=== PATIENT | female | born 1950 | race Caucasian/White ===

== ENCOUNTER 2016-08-03 18:28 | Outpatient (CLI) | payer MEDICARE | END 2016-08-03 18:29 | disposition critical access hospital (66) | DX: R06.02 Shortness of breath (principal) | CPT/HCPCS: A0425; A0427 ==

== ENCOUNTER 2016-08-03 18:54 | Inpatient (IN) | payer MEDICARE ==
[2016-08-03] MEDS ORDERED: MORPHINE 2 MG/ML SYRINGE ONE (18:58)
[2016-08-03] MEDS ORDERED: MORPHINE 2 MG/ML SYRINGE IVP STA (19:02)
[2016-08-03] MEDS ORDERED: ROCURONIUM 50 MG/5 ML VIAL IVP ONE (19:03)
[2016-08-03] MEDS ORDERED: ETOMIDATE 40 MG/20 ML VIAL IVP ONE (19:04)
[2016-08-03] MEDS ORDERED: SODIUM CHLORIDE 0.9% 1,000 ML IV ONE (19:09)
[2016-08-03] MEDS ORDERED: ALBUTEROL NEB 2.5 MG/3 ML INH STA (19:32)
[2016-08-03] MEDS ORDERED: ALBUTEROL NEB 2.5 MG/3 ML INH ONE (19:36)
[2016-08-03] MEDS ORDERED: LORazepam 2 MG/ML SYRINGE IVP PRN (20:24)
[2016-08-03] MEDS ORDERED: diazePAM INJ 5 MG/ML SYRINGE IVP PRN (20:24)
[2016-08-03] MEDS ORDERED: ONDANSETRON 4 MG/2 ML VIAL IVP PRN (20:24)
[2016-08-03] MEDS ORDERED: ALBUTEROL NEB 2.5 MG/3 ML INH PRN (20:32)
[2016-08-03] MEDS ORDERED: methylPREDNISolone SUCCINATE 80 MG in SODIUM CHLORIDE 0.9% 250 ML IV SCH (21:00)
[2016-08-03] MEDS: SODIUM CHLORIDE 0.9% 1,000 ML IV SCH (21:33)
[2016-08-03] MEDS: methylPREDNISolone SUCCINATE 40 MG/ML VIAL IVP SCH (21:55)
[2016-08-03] MEDS: SODIUM CHLORIDE FLUSH 0.9% 10 ML SYRINGE IVP SCH (21:55)
[2016-08-03] MEDS: IPRATROPIUM/ALBUTEROL 3 ML NEB INH SCH (22:00)
[2016-08-03] MEDS: MORPHINE 2 MG/ML SYRINGE IVP PRN (22:03)
[2016-08-04] MEDS: IPRATROPIUM/ALBUTEROL 3 ML NEB INH SCH ×7 (01:30→21:00)
[2016-08-04] MEDS: methylPREDNISolone SUCCINATE 40 MG/ML VIAL IVP SCH ×3 (05:24→21:43)
[2016-08-04] MEDS: SODIUM CHLORIDE FLUSH 0.9% 10 ML SYRINGE IVP SCH ×3 (05:25→21:19)
[2016-08-04] MEDS ORDERED: MAGNESIUM SULFATE 2 GM in SODIUM CHLORIDE 0.9% 50 ML IV ONE (06:32)
[2016-08-04] MEDS ORDERED: MAGNESIUM SULFATE 2 GRAM 50 ML IV ONE (06:48)
[2016-08-04] MEDS: MORPHINE 2 MG/ML SYRINGE IVP PRN ×4 (07:00→23:50)
[2016-08-04] MEDS ORDERED: MAGNESIUM SULFATE 2 GRAM 50 ML IV SCH (07:00)
[2016-08-04] MEDS: SODIUM CHLORIDE 0.9% 1,000 ML IV SCH ×2 (08:21→21:50)
[2016-08-04] MEDS: POLYETHYLENE GLYCOL 3350 17 GM PACKET PO SCH (08:23)
[2016-08-04] MEDS: THIAMINE 100 MG TABLET PO SCH (08:23)
[2016-08-04] MEDS: PRENATAL VITAMIN TABLET PO SCH (08:23)
[2016-08-04] MEDS: ENOXAPARIN 40 MG/0.4 ML SYRINGE SUBQ SCH (08:24)
[2016-08-04] MEDS: INSULIN ASPART 300 UNIT/3 ML PEN SUBQ SCH (21:43)
[2016-08-05] MEDS: IPRATROPIUM/ALBUTEROL 3 ML NEB INH SCH ×6 (01:35→21:04)
[2016-08-05] MEDS: methylPREDNISolone SUCCINATE 40 MG/ML VIAL IVP SCH ×3 (05:24→21:43)
[2016-08-05] MEDS: SODIUM CHLORIDE FLUSH 0.9% 10 ML SYRINGE IVP SCH ×3 (05:25→21:43)
[2016-08-05] MEDS ORDERED: INSULIN ASPART 300 UNIT/3 ML PEN SUBQ SCH (08:00)
[2016-08-05] MEDS: ENOXAPARIN 40 MG/0.4 ML SYRINGE SUBQ SCH (08:01)
[2016-08-05] MEDS: PRENATAL VITAMIN TABLET PO SCH (08:01)
[2016-08-05] MEDS: THIAMINE 100 MG TABLET PO SCH (08:01)
[2016-08-05] MEDS: INSULIN ASPART 300 UNIT/3 ML PEN SUBQ SCH ×4 (08:02→21:42)
[2016-08-05] MEDS: POLYETHYLENE GLYCOL 3350 17 GM PACKET PO SCH (08:03)
[2016-08-05] MEDS: SODIUM CHLORIDE 0.9% 1,000 ML IV SCH (10:17)
[2016-08-05] MEDS: MORPHINE 2 MG/ML SYRINGE IVP PRN ×3 (11:10→22:01)
[2016-08-05] MEDS: FORMOTEROL FUMARATE NEB 20 MCG/2 ML INH SCH ×2 (13:21→21:04)
[2016-08-05] MEDS: SODIUM CHLORIDE FLUSH 0.9% 10 ML SYRINGE IVP PRN ×2 (18:37→22:02)
[2016-08-06] MEDS: IPRATROPIUM/ALBUTEROL 3 ML NEB INH SCH ×3 (01:02→09:18)
[2016-08-06] MEDS: ACETAMINOPHEN 325 MG TABLET PO PRN ×2 (04:39→08:44)
[2016-08-06] MEDS: FORMOTEROL FUMARATE NEB 20 MCG/2 ML INH SCH (05:10)
[2016-08-06] MEDS: methylPREDNISolone SUCCINATE 40 MG/ML VIAL IVP SCH (05:46)
[2016-08-06] MEDS: SODIUM CHLORIDE FLUSH 0.9% 10 ML SYRINGE IVP SCH (05:46)
[2016-08-06] MEDS: THIAMINE 100 MG TABLET PO SCH (08:40)
[2016-08-06] MEDS: PRENATAL VITAMIN TABLET PO SCH (08:40)
[2016-08-06] MEDS: ENOXAPARIN 40 MG/0.4 ML SYRINGE SUBQ SCH (08:40)
[2016-08-06] MEDS: POLYETHYLENE GLYCOL 3350 17 GM PACKET PO SCH (11:18)
[2016-08-06] MEDS: INSULIN ASPART 300 UNIT/3 ML PEN SUBQ SCH (11:19)
== END 2016-08-06 11:05 | disposition home health service (06) | DRG 192 ==
DX: J44.1 Chronic obstructive pulmonary disease with (acute) exacerbation (principal); R09.02 Hypoxemia; F17.200 Nicotine dependence, unspecified, uncomplicated; F10.20 Alcohol dependence, uncomplicated; F17.210 Nicotine dependence, cigarettes, uncomplicated; R21 Rash and other nonspecific skin eruption

== ENCOUNTER 2018-05-18 14:23 | Outpatient (CLI) | payer MEDICARE | END 2018-05-18 14:24 | disposition critical access hospital (66) | LOC: EMS 14:23 | PROVIDERS: ATTEND Surgery | DX: R06.02 Shortness of breath (principal) | CPT/HCPCS: A0425; A0427 ==

== ENCOUNTER 2018-05-18 14:58 | Emergency (ER) | payer MEDICARE ==
[2018-05-18] MEDS ORDERED: IPRATROPIUM 0.2 MG/ML NEB INH STA (15:10)
[2018-05-18] MEDS ORDERED: ALBUTEROL NEB 2.5 MG/3 ML INH STA ×2 (15:10→19:49)
[2018-05-18] MEDS ORDERED: MAGNESIUM SULFATE 2 GRAM 2 GM/50 ML BAG IV ONE (15:11)
[2018-05-18 15:39] LABS: BASOPHILS # (AUTO) 0.1 10^3/uL (0.0-0.1); BASOPHILS % (AUTO) 0.8 %; EOSINOPHILS # (AUTO) 0.5 10^3/uL (0.0-0.7); EOSINOPHILS % (AUTO) 5.3 %; HGB - HEMOGLOBIN 14.4 g/dL (12.0-16.0); LYMPHOCYTES # (AUTO) 2.3 10^3/uL (1.5-3.5); LYMPHOCYTES % (AUTO) 25.6 %; MEAN CORPUSCULAR HEMOGLOBIN 34.5 pg (27.0-31.0); MEAN CORPUSCULAR HGB CONC 33.7 g/dL (32.0-36.0); MEAN CORPUSCULAR VOLUME 102.4 fL (81.0-99.0); MEAN PLATELET VOLUME 8.2 fL (7.9-10.8); MONOCYTES # (AUTO) 0.7 10^3/uL (0.0-1.0); MONOCYTES % (AUTO) 7.9 %; NEUTROPHILS # (AUTO) 5.5 10^3/uL (1.5-6.6); NEUTROPHILS % (AUTO) 60.4 %; PLT - PLATELET COUNT 287 10^3/uL (130-450); RED BLOOD COUNT 4.19 10^6/uL (4.20-5.40); RED CELL DISTRIBUTION WIDTH 13.7 % (12.0-15.0); WHITE BLOOD COUNT 9.2 x10^3/uL (4.8-10.8)
[2018-05-18] MEDS ORDERED: ALBUTEROL SULF 0.5% 20ML SOLUTION INH STA (15:40)
[2018-05-18 15:43] LABS: ALBUMIN 4.4 g/dL (3.2-5.5); ALBUMIN/GLOBULIN RATIO 1.2 (1.0-2.2); BILIRUBIN,TOTAL 0.9 mg/dL (0.2-1.0); CALCIUM 9.1 mg/dL (8.5-10.3); CREATININE 0.7 mg/dL (0.4-1.0)
[2018-05-18] MEDS ORDERED: ENOXAPARIN 100 MG/ML SYRINGE SUBQ STA (16:02)
[2018-05-18] MEDS ORDERED: ASPIRIN CHEW 81 MG TABLET PO STA (16:02)
--- NOTE | 2018-05-18 16:03 | ED Physician Documentation ---
PD HPI DYSPNEA - Stated complaint Stated Complaint: SOA - Chief complaint Chief Complaint: Resp - History obtained from History obtained from: Patient - Additional information Additional information: 67-year-old female presents to the emergency department with shortness of breath and wheezing which is typical for her COPD. The patient has been out of her medications recently and today had increased wheezing and shortness of breath. The patient had no improvement with her home medications. The patient denies fevers, chills or recent illness. The patient had improvement in route with EMS while she received a DuoNeb and Solu-Medrol in route with EMS.Symptoms currently are moderate but were severe in the beginning. Review of Systems Constitutional: reports: Fatigue. 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 : None HEENT: None Psych: None Musculoskeletal: Chronic back pain Derm: None - Past Surgical History Past Surgical History: Yes Ortho: Spine surgery - Present Medications Home Medications: Ambulatory Orders Medication Instructions Recorded Confirmed Albuterol Sulfate [Proair 2 puffs INH Q4H PRN 08/04/16 08/04/16 Respiclick] Fluticasone/Salmeterol [Advair 1 puffs INH BID 08/04/16 08/04/16 250-50 Diskus] Ipratropium/Albuterol [Duoneb] 3 ml INH Q4HR #120 neb 08/06/16 Nebulizer [Aeroneb Go Nebulizer] 1 each MC QID #1 each 08/06/16 Oxygen 2 l ALEK DAILY #1 08/06/16 Prednisone 10 mg PO UD #1 tab.ds.pk 08/06/16 Thiamine [Vitamin B-1] 100 mg PO DAILY #1 bottle 08/06/16 - Allergies Allergies/Adverse Reactions: Allergies Allergy/AdvReac Type Severity Reaction Status Date / Time No Known Drug Allergies Allergy Verified 05/18/18 15:05 - Social History Does the pt smoke?: Yes Smoking Status: Current every day smoker Does the pt drink ETOH?: Yes ETOH Use: Wine, Beer, Liquor Does the pt have substance abuse?: No - Immunizations Immunizations are current?: No Immunizations: TDAP >10years/unknown - POLST Patient has POLST: No PD ED PE NORMAL - General General: Alert and oriented X 3 - HEENT HEENT: Atraumatic, PERRL, EOMI, Ears normal - Neck Neck: Supple, no meningeal sign - Cardiac Cardiac: RRR, Strong equal pulses - Respiratory Respiratory: Other (Increased respiratory rate with poor aeration and generalized wheezing) - Abdomen Abdomen: Soft, Non tender - Derm Derm: Normal color - Extremities Extremities: No deformity, Normal ROM s pain, No edema - Neuro Neuro: Alert and oriented X 3, 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 unit 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 2-12 intact, Normal speech - Psych Psych: Normal mood Results - Vitals Vitals: Vital Signs - 24 hr 05/18/18 05/18/18 05/18/18 15:00 15:26 16:00 Temperature 35.6 C L Heart Rate 113 H 118 H 110 H Respiratory 20 21 12 Rate Blood Pressure 124/97 H 111/82 H O2 Saturation 94 94 05/18/18 05/18/18 16:11 19:46 Temperature Heart Rate 112 H 106 H Respiratory 18 14 Rate Blood Pressure 105/77 103/79 O2 Saturation 100 94 Oxygen O2 Source Room air Oxygen Flow Rate 2 - EKG (time done) 15:06 Rate: Rate (enter#) Rhythm: Sinus tachycardia Intervals: Normal IN, QRS normal Ischemia: Non specific changes Compare to prior EKG: Unchanged from prior EKG - Labs Labs: Laboratory Tests 05/18/18 05/18/18 05/18/18 15:25 15:25 15:25 WBC 9.2 RBC 4.19 L Hgb 14.4 Hct 42.9 MCV 102.4 H MCH 34.5 H MCHC 33.7 RDW 13.7 Plt Count 287 MPV 8.2 Neut # (Auto) 5.5 Lymph # (Auto) 2.3 [place] # (Auto) 0.7 Eos # (Auto) 0.5 Baso # (Auto) 0.1 Absolute Nucleated RBC 0.00 Nucleated RBC % 0.0 Sodium 137 Potassium 4.0 Chloride 101 Carbon Dioxide 24 Anion Gap 12.0 BUN 11 Creatinine 0.7 Estimated GFR (MDRD) 84 L Glucose 130 H Calcium 9.1 Total Bilirubin 0.9 AST 84 H ALT 41 Alkaline Phosphatase 81 Troponin I 1.63 H* Total Protein 8.0 Albumin 4.4 Globulin 3.6 Albumin/Globulin Ratio 1.2 Lipase 21 L - Rads (name of study) CTA Radiology: Final report received, See rad report (1. Negative for pulmonary embolism. 2. Multiple bilateral pulmonary nodules, pattern highly concerning for metastatic disease. Some of the nodules are cavitary which raises the alternate possibility of infection/septic emboli. 3. There is right hilar lymphadenopathy. 4. There is an incompletely characterized area of decreased attenuation in the anterior left hepatic lobe. 5. There is pulmonary emphysema.) PD MEDICAL DECISION MAKING - ED course ED course: The patient's history, presentation are consistent with an acute COPD exacerbation. But, the patient's troponin is significantly elevated but the patient's EKG does not show any acute ischemic changes when compared to a recent EKG. On reevaluation the patient does report intermittent episodes of dyspnea on exertion and chest tightness. But today her symptoms are more consistent with her typical COPD. The patient will require admission to the hospital for further management of her COPD, CT findings and elevated troponin. The patient will require transfer to a higher level of care. The case was managed through the [facility] physician line and they have arranged transfer to [facility]. Presently the patient appears stable for transfer. The findings and plan were discussed with the patient who understands and agrees to the plan. Given the findings on CT scan and the possibility of a infectious emboli the patient will be placed on a course of antibiotics. This will require further workup during her hospitalization Departure - Departure Disposition: 02 Transfer Acute Care Hosp Clinical Impression: NSTEMI (non-ST elevated myocardial infarction), COPD with exacerbation, Pulmonary nodules Condition: Good
[2018-05-18] MEDS ORDERED: IOVERSOL 320 100 ML VIAL IVP ONE ×2 (16:13→17:14)
--- NOTE | 2018-05-18 16:17 | XRAY Report ---
Reason: soa Procedure Date: 05/18/2018 Accession Number: [id number] / [id number] Procedure: XR - Chest 2 View X-Ray CPT Code: 13143 FULL RESULT: EXAM: CHEST RADIOGRAPHY EXAM DATE: 05/18/2018 03:57 PM. CLINICAL HISTORY: Soa. COMPARISON: CHEST 1 VIEW 08/03/2016 7:16 PM. TECHNIQUE: 2 views. FINDINGS: Lungs/Pleura: Hyperexpanded, typical for COPD. Multiple faint nodular densities in both lungs. No acute infiltrate, consolidation, effusion, or pneumothorax. Mediastinum: Heart and mediastinal contours are unremarkable. Upper lobe vessels not distended. Other: None. IMPRESSION: Multiple pulmonary nodules. CT scan is recommended. RADIA
[2018-05-18] MEDS ORDERED: ENOXAPARIN 60 MG/0.6 ML SYRINGE SUBQ STA (16:26)
--- NOTE | 2018-05-18 17:45 | CT Report ---
Reason: SOA Procedure Date: 05/18/2018 Accession Number: [id number] / [id number] Procedure: CT - Chest Angio (PE) CPT Code: FULL RESULT: EXAM: CT ANGIOGRAM CHEST EXAM DATE: 05/18/2018 05:10 PM. CLINICAL HISTORY: Short of breath. COMPARISON: CHEST 2 VIEW 05/18/2018 3:43 PM. TECHNIQUE: Routine helical imaging was performed through the chest in the pulmonary arterial phase. IV Contrast: OPTI 320 80mL. Reconstructions: Coronal 3-D MIP reconstructions.Sagittal and coronal. In accordance with CT protocol optimization, one or more of the following dose reduction techniques were utilized for this exam: automated exposure control, adjustment of mA and/or KV based on patient size, or use of iterative reconstructive technique. FINDINGS: Pulmonary Arteries: Diagnostic quality: Images are motion degraded but overall adequate through the segmental arteries. No evidence for acute or chronic pulmonary emboli. RV/LV is within normal limits. There is no interventricular septal bowing. There is reflux of contrast material in the IVC. Lungs/Pleura: There are multiple bilateral lung nodules, some of which are cavitary. For example: 1. Cavitary in the right lower lobe medially series 5 image 67 measuring 1.2 x 1.6 cm. 2. Anterior left upper lobe series 5 image 68 measuring 0.9 x 1.6 cm. There is pulmonary emphysema. No pneumothorax or pleural effusion. Mediastinum: There is right hilar adenopathy on series 4 image 62 measuring 1.5 x 1.7 cm. Normal heart size. Thoracic Aorta: Unremarkable. Upper Abdomen: There is an area of decreased attenuation in the anterior aspect of segment 4 and series 4 image 150 measuring approximately 1.6 x 3.8 cm. Other: No acute or suspicious skeletal abnormalities. IMPRESSION: 1. Negative for pulmonary embolism. 2. Multiple bilateral pulmonary nodules, pattern highly concerning for metastatic disease. Some of the nodules are cavitary which raises the alternate possibility of infection/septic emboli. 3. There is right hilar lymphadenopathy. 4. There is an incompletely characterized area of decreased attenuation in the anterior left hepatic lobe. 5. There is pulmonary emphysema. RADIA
[2018-05-18] MEDS ORDERED: NAPROXEN 250 MG TABLET PO STA (19:49)
[2018-05-18] MEDS ORDERED: LORazepam 2 MG/ML VIAL IVP STA (19:59)
[2018-05-18] MEDS ORDERED: CEFEPIME 1 GM in SODIUM CHLORIDE 0.9% MINIBAG 100 ML IV STA (20:10)
[2018-05-18 21:59] VITALS: BP 102/78
== END 2018-05-18 23:10 | disposition short-term general hospital (02) ==
LOC: EDUNIT# → ED 14:58
DX: I21.4 Non-ST elevation (NSTEMI) myocardial infarction (principal); J44.1 Chronic obstructive pulmonary disease with (acute) exacerbation; R91.1 Solitary pulmonary nodule; R00.0 Tachycardia, unspecified; F17.200 Nicotine dependence, unspecified, uncomplicated
CPT/HCPCS: 36415; 71046; 71275; 80053; 83690; 84484; 85025; 87040; 93005; 94640; 94664; 96365; 96367; 96372; 96375; 99284; 99285; A9270; J1650; J2060; Q9967

== ENCOUNTER 2018-11-27 11:29 | Outpatient (CLI) | payer MEDICARE ==
[2018-11-27 12:05] LABS: CREATININE 0.8 mg/dL (0.4-1.0)
[2018-11-27] MEDS ORDERED: IOVERSOL 320 100 ML VIAL IVP ONE ×2 (13:11→17:06)
--- NOTE | 2018-11-29 10:02 | CT Report ---
Reason: CHRONIC OBSTRUCTIVE PULMONARY DISEASE,UNSPECIFIED Procedure Date: 11/27/2018 Accession Number: [id number] / [id number] Procedure: CT - CHEST W CPT Code: FULL RESULT: EXAM: CT CHEST EXAM DATE: 11/27/2018 01:37 PM. CLINICAL HISTORY: Chronic obstructive pulmonary disease, unspecified. Followup of previously found pulmonary nodules concerning for metastatic disease or septic emboli. COMPARISONS: CHEST ANGIO 05/18/2018 4:55 PM. TECHNIQUE: Routine helical CT imaging was performed through the chest. IV contrast: None. Reconstructions: Coronal and sagittal. In accordance with CT protocol optimization, one or more of the following dose reduction techniques were utilized for this exam: automated exposure control, adjustment of mA and/or KV based on patient size, or use of iterative reconstructive technique. FINDINGS: Lungs/Pleura: Previously seen bilateral pulmonary nodules essentially persist with the largest right lower lobe nodule measuring up to 1.2 cm and the largest left upper lobe nodule measuring up to 1.3 cm on today's examination. The nodules demonstrate irregular borders. Previously seen cavitary components of the nodules in the right lower lobe have resolved with solid nodules remaining in the same positions. There is no definite interval growth or progression of number of irregular nodules. Coronal view of the current study and prior study reveals that nodules generally follow a peribronchovascular upper lobe predominant distribution subjective impression of interval improvement of volume of these nodules. Pulmonary background is again noted to be moderately emphysematous, upper lobe predominant. There is no pleural effusion or pneumothorax. No convincing groundglass components. Mediastinum: Normal. No adenopathy or masses. The heart and great vessels are normal. Bones: Unremarkable. Visualized Abdomen: Unremarkable. Other: None. IMPRESSION: Bilateral upper lobe predominant peribronchovascular irregularly shaped nodules with interval improvement in previously seen cavitation and size. JONAS The call report notification system was initiated by Dr. Ravi Murphy at 10:01 AM on 11/29/2018. ADDENDUM: 11/29/18 10:09 The above call report findings were discussed with SAVANNAH Bonner on behalf ofRadha Flowers by Dr. Ravi Murphy at 10:09 AM on 11/29/2018.
== END 2018-11-27 11:30 | disposition home or self-care (01) ==
LOC: DI 11:29
PROVIDERS: ATTEND Student in an Organized Health Care Education/Training Program
DX: J44.9 Chronic obstructive pulmonary disease, unspecified (principal); Z13.89 Encounter for screening for other disorder
CPT/HCPCS: 36415; 71260; 82565; Q9967

== ENCOUNTER 2019-06-24 13:39 | Outpatient (CLI) | payer MEDICARE ==
[2019-06-24 17:56] LABS: BASOPHILS # (AUTO) 0.1 10^3/uL (0.0-0.1); EOSINOPHILS # (AUTO) 0.2 10^3/uL (0.0-0.7); EOSINOPHILS % (AUTO) 3.7 %; HGB - HEMOGLOBIN 13.4 g/dL (12.0-16.0); LYMPHOCYTES # (AUTO) 1.5 10^3/uL (1.5-3.5); LYMPHOCYTES % (AUTO) 31.6 %; MEAN CORPUSCULAR HEMOGLOBIN 32.2 pg (27.0-31.0); MEAN CORPUSCULAR HGB CONC 32.8 g/dL (32.0-36.0); MEAN CORPUSCULAR VOLUME 98.3 fL (81.0-99.0); MEAN PLATELET VOLUME 11.2 fL (7.9-10.8); MONOCYTES # (AUTO) 0.4 10^3/uL (0.0-1.0); MONOCYTES % (AUTO) 8.3 %; NEUTROPHILS # (AUTO) 2.7 10^3/uL (1.5-6.6); NEUTROPHILS % (AUTO) 55.2 %; PLT - PLATELET COUNT 226 10^3/uL (130-450); RED BLOOD COUNT 4.16 10^6/uL (4.20-5.40); RED CELL DISTRIBUTION WIDTH 14.1 % (12.0-15.0); WHITE BLOOD COUNT 4.8 x10^3/uL (4.8-10.8)
[2019-06-24 18:27] LABS: ALBUMIN 4.5 g/dL (3.2-5.5); ALBUMIN/GLOBULIN RATIO 1.4 (1.0-2.2); ALKALINE PHOSPHATASE 67 IU/L (42-121); ALT ALANINE AMINOTRANSFERASE 26 IU/L (10-60); AST ASPARTATE AMINOTRANSFERASE 43 IU/L (10-42); BILIRUBIN,TOTAL 0.8 mg/dL (0.2-1.0); BUN - BLOOD UREA NITROGEN 13 mg/dL (6-20); CALCIUM 9.2 mg/dL (8.5-10.3); CARBON DIOXIDE - CO2 26 mmol/L (21-32); CHLORIDE 101 mmol/L (101-111); CHOL/HDL RATIO 1.9 (<4.4); CHOLESTEROL 192 mg/dL; CREATININE 0.7 mg/dL (0.4-1.0); GFR - MDRD 83 (>89); GLUCOSE 100 mg/dL (70-100); HDL CHOLESTEROL 102 mg/dL; LDL CHOLESTEROL,CALCULATED 77 mg/dL; LDL/HDL RATIO 0.8 (<4.4); SODIUM 136 mmol/L (135-145); TOTAL PROTEIN 7.7 g/dL (6.7-8.2); VLDL CHOLESTEROL 13 mg/dL
== END 2019-06-24 13:40 | disposition home or self-care (01) ==
LOC: LAB.S 13:39
PROVIDERS: ATTEND Registered Nurse
DX: E78.5 Hyperlipidemia, unspecified (principal); R03.0 Elevated blood-pressure reading, without diagnosis of hypertension; J44.9 Chronic obstructive pulmonary disease, unspecified
CPT/HCPCS: 36415; 80053; 80061; 83721; 84443; 85025

== ENCOUNTER 2019-09-10 21:44 | Emergency (ER) | payer MEDICARE ==
--- NOTE | 2019-09-10 22:35 | ED Physician Documentation ---
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 it is left of midline and intermittently spreads to involve left anterior chin. denies h/o similar symptoms, GOMEZ, weakness, other numbness Review of Systems Constitutional: denies: Fever Eyes: denies: Loss of vision, Decreased vision Ears: reports: Tinnitus/ringing Nose: denies: Rhinorrhea / runny nose, Congestion, Sinus pressure / pain Neurologic: reports: Numbness. 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 : None HEENT: None Psych: None Musculoskeletal: Chronic back pain Derm: None - Past Surgical History Past Surgical History: Yes Ortho: Spine surgery - Present Medications Home Medications: Ambulatory Orders Medication Instructions Recorded Confirmed Albuterol Sulfate [Proair 2 puffs INH Q4H PRN 08/04/16 09/10/19 Respiclick] Ipratropium/Albuterol [Duoneb] 3 ml INH Q4HR #120 neb 08/06/16 09/10/19 Nebulizer [Aeroneb Go Nebulizer] 1 each QID #1 each 08/06/16 09/10/19 Aspirin 81 mg PO DAILY 09/10/19 09/10/19 Atorvastatin Calcium 80 mg PO DAILY 09/10/19 09/10/19 Losartan Potassium 25 mg PO DAILY 09/10/19 09/10/19 Metoprolol Succinate [Toprol Xl] 25 mg PO DAILY 09/10/19 09/10/19 Potassium Chloride [K-Dur] 20 mg PO PRN PRN 09/10/19 09/10/19 QUEtiapine [SEROquel] 25 mg PO DAILY PRN 09/10/19 09/10/19 - Allergies Allergies/Adverse Reactions: Allergies Allergy/AdvReac Type Severity Reaction Status Date / Time topiramate [From Topamax] Allergy Unknown Verified 05/13/20 07:14 varenicline [From Chantix] Allergy Unknown Verified 09/11/19 07:14 - Social History Does the pt smoke?: Yes Smoking Status: Current every day smoker Does the pt drink ETOH?: Yes Does the pt have substance abuse?: No - Immunizations Immunizations are current?: No Immunizations: TDAP >10years/unknown - POLST Patient has POLST: No PD ED PE NORMAL - Vitals Vital signs reviewed: Yes - General General: Alert and oriented X 3, No acute distress, Well developed/nourished - HEENT HEENT: PERRL, EOMI, Ears normal (only looked in left ear (side of symptoms), and exam of left external auditory canal and left TM is unremarkable), Moist mucous membranes - Derm Derm: Normal color, Warm and dry, No rash - Neuro Neuro: Alert and oriented X 3, 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, No motor deficit, No sensory deficit, Normal speech, Other (no facial asymetry, no facial weakness elicited with muscle testing (smiling, raising eyebrows, closing eyes)) Results - Vitals Vitals: Vital Signs - 24 hr 09/10/19 09/10/19 09/10/19 21:57 23:16 23:57 Temperature 36.2 C L 36.8 C Heart Rate 87 103 H Respiratory 17 17 20 Rate Blood Pressure 123/88 H 137/72 H O2 Saturation 96 98 09/11/19 00:00 Temperature Heart Rate Respiratory 17 Rate Blood Pressure O2 Saturation Oxygen O2 Source Room air - Rads (name of study) CT head Radiology: Prelim report reviewed, See rad report PD MEDICAL DECISION MAKING - ED course Complexity details: reviewed results, re-evaluated patient, considered differential, d/w patient Departure - Departure Disposition: 01 Home, Self Care Clinical Impression: Lt facial numbness Condition: Good Instructions: ED Paraesthesias Follow-Up: Natasha Cabrera ARNP [Primary Care Provider] - Discharge Date/Time: 09/11/19 00:12
--- NOTE | 2019-09-10 23:45 | CT Report ---
Reason: left facial numbness Procedure Date: 09/10/2019 Accession Number: [id number] / [id number] Procedure: CT - HEAD WO CPT Code: Final Report FULL RESULT: EXAM: CT HEAD WITHOUT CONTRAST. EXAM DATE: 09/10/2019 11:03 PM. CLINICAL HISTORY: Left facial numbness. COMPARISON: None. TECHNIQUE: Multiaxial CT images were obtained from the foramen magnum to the vertex. Reformats: Sagittal and coronal. IV contrast: None. In accordance with CT protocol optimization, one or more of the following dose reduction techniques were utilized for this exam: automated exposure control, adjustment of mA and/or KV based on patient size, or use of iterative reconstructive technique. FINDINGS: Parenchyma: No intraparenchymal hemorrhage. No evidence of mass, midline shift, or CT findings of acute infarction. [place]-white differentiation is distinct. Extraaxial Spaces: There is bilateral predominantly frontal lobe cortical atrophy. No subdural or epidural collections identified. Ventricles: Normal in size and position. Sinuses and Orbits: Imaged paranasal sinuses, orbits, and mastoids show no significant abnormality. Bones: No evidence of fracture or calvarial defect. Other: None. IMPRESSION: No acute intracranial abnormality. RADIA
[2019-09-10 23:57] VITALS: BP 137/72
== END 2019-09-11 00:12 | disposition home or self-care (01) ==
LOC: ED 21:44
DX: R20.0 Anesthesia of skin (principal); H93.12 Tinnitus, left ear; F17.200 Nicotine dependence, unspecified, uncomplicated; Z79.82 Long term (current) use of aspirin
CPT/HCPCS: 70450; 99284

== ENCOUNTER 2020-01-18 09:38 | Outpatient (CLI) | payer MEDICARE ==
--- NOTE | 2020-01-18 12:59 | CT Report ---
PROCEDURE: CHEST WO INDICATIONS: PULMONARY NODULES TECHNIQUE: Noncontrast 5 mm thick sections acquired from the pulmonary apices to the posterior costophrenic angl es. 7 mm thick coronal and sagittal MIP reformats were then acquired. For radiation dose reduction, the following was used: automated exposure control, adjustment of mA and/or kV according to patient size. COMPARISON: 11/27/2018, 05/18/2018 FINDINGS: Image quality: Excellent. Lungs and pleura: Numerous bilateral pulmonary nodules are seen. When compared to the 11/27/2018 exam ination, the nodules are not significantly changed in size. No new nodules are seen. Within the left lower lobe peripherally, there is a focus of ground glass opacity seen, as on series 4 image 2012, wh ich measures up to 1.6 cm. This is more prominent on the current study than on the prior. No pleural effusions or pneumothorax. Central and peripheral airways are patent and normal in calibe r. Mediastinum: Heart size is normal. No pericardial effusion. No mediastinal adenopathy by size crit eria. Thoracic aorta and central pulmonary arteries are normal in size. Esophagus is normal in sydnie martha. There is a small hiatal hernia. Bones and chest wall: No suspicious bony lesions. Age-appropriate degenerative changes are seen. No vertebral body compression fractures. No axillary or supraclavicular adenopathy by size criteria. The thyroid is normal in size. Abdomen: Visualized upper abdominal solid organs and bowel loops appear normal in the absence of con trast. IMPRESSION: Multiple bilateral stable pulmonary nodules are seen. These are felt most likely to be benign. There is a focus of groundglass opacity seen within the left lower lobe which has increased since the prior CT. Differential diagnosis includes chronic infectious or inflammatory change. Neoplasm is con sidered to be less likely. Please consider a noncontrast chest CT follow-up in 6-12 months for further evaluation. Incidental note is made of: Small hiatal hernia Reviewed by: Ralph Serrano MD on 01/18/2020 11:58 AM AKKRISTEN Approved by: Ralph Serrano MD on 01/18/2020 11:58 AM AKKRISTEN Station ID: [id number]
== END 2020-01-18 09:39 | disposition home or self-care (01) ==
LOC: DI 09:38
PROVIDERS: ATTEND Internal Medicine Pulmonary Disease
DX: R91.8 Other nonspecific abnormal finding of lung field (principal)
CPT/HCPCS: 71250

== ENCOUNTER 2020-09-18 09:10 | Outpatient (CLI) | payer MEDICARE ==
[2020-09-18 14:33] LABS: BASOPHILS # (AUTO) 0.1 10^3/uL (0.0-0.1); BASOPHILS % (AUTO) 0.8 %; EOSINOPHILS # (AUTO) 0.2 10^3/uL (0.0-0.7); EOSINOPHILS % (AUTO) 3.9 %; LYMPHOCYTES # (AUTO) 1.5 10^3/uL (1.5-3.5); LYMPHOCYTES % (AUTO) 24.5 %; MEAN CORPUSCULAR HEMOGLOBIN 32.7 pg (27.0-31.0); MEAN CORPUSCULAR HGB CONC 32.5 g/dL (32.0-36.0); MEAN CORPUSCULAR VOLUME 100.5 fL (81.0-99.0); MONOCYTES # (AUTO) 0.4 10^3/uL (0.0-1.0); MONOCYTES % (AUTO) 7.3 %; NEUTROPHILS # (AUTO) 3.7 10^3/uL (1.5-6.6); PLT - PLATELET COUNT 250 10^3/uL (130-450); RED BLOOD COUNT 3.98 10^6/uL (4.20-5.40); RED CELL DISTRIBUTION WIDTH 14.8 % (12.0-15.0); WHITE BLOOD COUNT 5.9 x10^3/uL (4.8-10.8)
[2020-09-18 15:48] LABS: ALBUMIN 4.4 g/dL (3.2-5.5); ALBUMIN/GLOBULIN RATIO 1.3 (1.0-2.2); ALKALINE PHOSPHATASE 84 IU/L (42-121); ALT ALANINE AMINOTRANSFERASE 41 IU/L (10-60); AST ASPARTATE AMINOTRANSFERASE 82 IU/L (10-42); BILIRUBIN,TOTAL 0.9 mg/dL (0.2-1.0); BUN - BLOOD UREA NITROGEN 6 mg/dL (6-20); CALCIUM 9.5 mg/dL (8.5-10.3); CARBON DIOXIDE - CO2 24 mmol/L (21-32); CHLORIDE 104 mmol/L (101-111); CHOL/HDL RATIO 1.6 (<4.4); CHOLESTEROL 187 mg/dL; CREATININE 0.5 mg/dL (0.4-1.0); GFR - MDRD 123 (>89); GLUCOSE 78 mg/dL (70-100); HDL CHOLESTEROL 120 mg/dL; LDL CHOLESTEROL,CALCULATED 52 mg/dL; LDL/HDL RATIO 0.4 (<4.4); POTASSIUM 3.9 mmol/L (3.5-5.0); SODIUM 141 mmol/L (135-145); TOTAL PROTEIN 7.8 g/dL (6.7-8.2); TRIGLYCERIDES 75 mg/dL; VLDL CHOLESTEROL 15 mg/dL
[2020-09-18 15:50] LABS: THYROID STIMULATING HORMONE 1.24 uIU/mL (0.34-5.60)
== END 2020-09-18 09:11 | disposition home or self-care (01) ==
LOC: LAB.S 09:10
PROVIDERS: ATTEND Registered Nurse
DX: E78.5 Hyperlipidemia, unspecified (principal); R03.0 Elevated blood-pressure reading, without diagnosis of hypertension; J44.9 Chronic obstructive pulmonary disease, unspecified
CPT/HCPCS: 36415; 80053; 80061; 83721; 84443; 85025

== ENCOUNTER 2021-02-15 16:25 | Outpatient (CLI) | payer MEDICARE ==
--- NOTE | 2021-02-15 17:18 | CT Report ---
PROCEDURE: CHEST WO INDICATIONS: LUNG NODULE TECHNIQUE: Noncontrast 1mm axial images were acquired from the pulmonary apices to the posterior costophrenic an gles. Axial 5 mm soft tissue kernel reconstructions were performed as well as 8 mm axial MIP and cor onal and sagittal 5 mm reformations. For radiation dose reduction, the following was used: automate d exposure control, adjustment of mA and/or kV according to patient size. COMPARISON: January 18, 2020. FINDINGS: Thyroid: Homogeneous. Vasculature: Normal size and contour. Heart: No cardiomegaly or pericardial effusion. Mediastinum/leslie: No pathologically enlarged lymph nodes by size criteria. Lung/pleura: No consolidation, pleural effusion, or pneumothorax. Centrilobular emphysematous changes . Redemonstrated numerous pulmonary nodules, some exhibiting faint calcifications, not significantly changed in size. Slight interval enlargement of the previously demonstrated left lower lobe, pleural-based subsolid no dule. The solid component of the aforementioned nodule measures up to 5.7 mm (series 4, image 226). February 15, 2021: 1.9 cm (series 4, image 232). January 17, 2022: 1.7 cm (series 4, image 214). Tracheobronchial tree: Patent. Mild bronchiectasis. Upper abdomen: No acute abnormality. Bones: No significant abnormality. Chest wall: No significant abnormality. IMPRESSION: 1.Slight interval enlargement of the left lower lobe subsolid nodule. Consider CT follow-up in 6 minnie hs to ensure stability. Reviewed by: Aaron Johnston MD on 02/15/2021 5:17 PM PDT Approved by: Aaron Johnston MD on 02/15/2021 5:17 PM PDT Station ID: [id number]
== END 2021-02-15 16:26 | disposition home or self-care (01) ==
LOC: DI 16:25
PROVIDERS: ATTEND Internal Medicine Pulmonary Disease
DX: R91.1 Solitary pulmonary nodule (principal)

== ENCOUNTER 2022-07-04 09:54 | Outpatient (CLI) | payer MEDICARE ==
[2022-07-04 17:18] LABS: ALBUMIN 4.1 g/dL (3.2-5.5); ALBUMIN/GLOBULIN RATIO 1.1 (1.0-2.2); ALKALINE PHOSPHATASE 79 IU/L (42-121); ALT ALANINE AMINOTRANSFERASE 22 IU/L (10-60); AST ASPARTATE AMINOTRANSFERASE 41 IU/L (10-42); BILIRUBIN,TOTAL 0.9 mg/dL (0.2-1.0); BUN - BLOOD UREA NITROGEN 13 mg/dL (6-20); CALCIUM 9.6 mg/dL (8.5-10.3); CARBON DIOXIDE - CO2 26 mmol/L (21-32); CHLORIDE 106 mmol/L (101-111); CHOL/HDL RATIO 1.5 (<4.4); CHOLESTEROL 185 mg/dL; CREATININE 0.8 mg/dL (0.4-1.0); GFR - MDRD 71 (>89); GLUCOSE 96 mg/dL (70-100); HDL CHOLESTEROL 127 mg/dL; LDL CHOLESTEROL,CALCULATED 45 mg/dL; LDL/HDL RATIO 0.4 (<4.4); POTASSIUM 4.2 mmol/L (3.5-5.0); SODIUM 139 mmol/L (135-145); TRIGLYCERIDES 64 mg/dL; VLDL CHOLESTEROL 13 mg/dL
[2022-07-04 17:53] LABS: THYROID STIMULATING HORMONE 1.06 uIU/mL (0.34-5.60)
--- NOTE | 2022-07-05 10:01 | Mammography Report ---
BILATERAL DIGITAL SCREENING MAMMOGRAM 3D/2D: 07/04/2022 CLINICAL: Baseline exam. Routine screening. No prior exams were available for comparison. Both breasts are heterogeneously dense, which may obscure small masses (category c / 51-75% glandular tissue). No significant masses, calcifications, or other findings are seen in either breast. IMPRESSION: NEGATIVE There is no mammographic evidence of malignancy. A 1 year screening mammogram is recommended. Based on the Tyrer Cuzick model (a risk assessment model) the patients lifetime risk is 5.3% and her 10 year risk is 3.3%. According to the ACR, ACS, and NCCN guidelines, an annual breast MRI exam haris g with mammogram is recommended if the patients lifetime risk is 20% or greater. This exam was interpreted at Station ID: [id number]. NOTE: For mammograms, a report in lay terms will be sent to the patient. Approximately 15% of breast malignancies will not be visualized mammographically. In the management of a palpable breast mass, a negative mammogram must not discourage biopsy of a clinically suspicious lesion. Electronically Signed By: Juan sena/elba:07/04/2022 17:34:24 letter sent: No_Letter ACR BI-RADS Category 1: Negative 3341F PARENCHYMAL PATTERN: (D) - The breast(s) demonstrate(s) heterogeneously dense fibroglandular bonnie singh. BI-RADS CATEGORY: (1) - 1 Mammogram [id number] 1 year screening LATERALITY: (B)
== END 2022-07-04 09:55 | disposition home or self-care (01) ==
LOC: DI.S 09:54
PROVIDERS: ATTEND Registered Nurse
DX: Z12.31 Encounter for screening mammogram for malignant neoplasm of breast (principal); Z79.899 Other long term (current) drug therapy; E78.5 Hyperlipidemia, unspecified; Z13.29 Encounter for screening for other suspected endocrine disorder
CPT/HCPCS: 36415; 80053; 80061; 83721; 84443; 85025

== ENCOUNTER 2022-07-09 12:47 | Outpatient (CLI) | payer MEDICARE ==
--- NOTE | 2022-07-10 00:43 | CT Report ---
PROCEDURE: CHEST WO INDICATIONS: LUNG CA TECHNIQUE: Noncontrast 1mm axial images were acquired from the pulmonary apices to the posterior costophrenic an gles. Axial 5 mm soft tissue kernel reconstructions were performed as well as 8 mm axial MIP and cor onal and sagittal 5 mm reformations. For radiation dose reduction, the following was used: automate d exposure control, adjustment of mA and/or kV according to patient size. COMPARISON: 03/21/2022 FINDINGS: Image quality: Excellent. Lungs and pleura: The lungs have centrilobular emphysematous changes. There is scarring in the apice s. Multiple pulmonary nodules are present in the right upper lobe, right lower lobe, left upper lobe, and left lower lobe are unchanged in size and appearance compared to the prior CT on 03/21/2022. A g roundglass opacity in the left lower lobe series 4 image 209 measures 3.5 x 2.1 cm, smaller compared to the prior CT when it measured 5.5 x 3.0 cm. No pleural effusions or pneumothorax. Central and per ipheral airways are patent and normal in caliber. Mediastinum: Heart size is normal. No pericardial effusion. No mediastinal adenopathy by size crit eria. Thoracic aorta and central pulmonary arteries are normal in size. Esophagus is normal in sydnie martha. No hiatal hernia. Bones and chest wall: No suspicious bony lesions. No vertebral body compression fractures. No axil killian or supraclavicular adenopathy by size criteria. The thyroid is normal in size and there are no incidental findings. Abdomen: Visualized upper abdominal solid organs and bowel loops appear normal in the absence of con trast. IMPRESSION: 1. Groundglass opacity in the left lower lobe is smaller compared to the prior CT on 03/21/2022. 2. Multiple pulmonary nodules throughout both lungs harvey. 3. Centrilobular emphysema. Reviewed by: Galen Hung on 07/09/2022 11:42 PM GEMA Approved by: Galen Hung on 07/09/2022 11:42 PM [facility] Station ID: [id number]
== END 2022-07-09 12:48 | disposition home or self-care (01) ==
LOC: DI 12:47
PROVIDERS: ATTEND Radiology Radiation Oncology
DX: D02.22 Carcinoma in situ of left bronchus and lung (principal); J43.2 Centrilobular emphysema; R91.8 Other nonspecific abnormal finding of lung field

== ENCOUNTER 2022-07-11 09:14 | Outpatient (CLI) | payer MEDICARE ==
[2022-07-11 14:40] LABS: BASOPHILS # (AUTO) 0.1 10^3/uL (0.0-0.1); BASOPHILS % (AUTO) 0.8 %; EOSINOPHILS # (AUTO) 0.4 10^3/uL (0.0-0.7); EOSINOPHILS % (AUTO) 5.3 %; HCT - HEMATOCRIT 39.5 % (37.0-47.0); HGB - HEMOGLOBIN 12.9 g/dL (12.0-16.0); LYMPHOCYTES # (AUTO) 1.4 10^3/uL (1.5-3.5); LYMPHOCYTES % (AUTO) 20.9 %; MEAN CORPUSCULAR HEMOGLOBIN 31.9 pg (27.0-31.0); MEAN CORPUSCULAR HGB CONC 32.7 g/dL (32.0-36.0); MEAN CORPUSCULAR VOLUME 97.8 fL (81.0-99.0); MEAN PLATELET VOLUME 10.2 fL (7.9-10.8); MONOCYTES # (AUTO) 0.7 10^3/uL (0.0-1.0); NEUTROPHILS # (AUTO) 4.1 10^3/uL (1.5-6.6); NEUTROPHILS % (AUTO) 62.7 %; PLT - PLATELET COUNT 255 10^3/uL (130-450); RED BLOOD COUNT 4.04 10^6/uL (4.20-5.40); RED CELL DISTRIBUTION WIDTH 14.7 % (12.0-15.0); WHITE BLOOD COUNT 6.6 x10^3/uL (4.8-10.8)
== END 2022-07-11 09:15 | disposition home or self-care (01) ==
LOC: LAB.S 09:14
PROVIDERS: ATTEND Registered Nurse
DX: E78.5 Hyperlipidemia, unspecified (principal); Z79.899 Other long term (current) drug therapy; Z13.29 Encounter for screening for other suspected endocrine disorder
CPT/HCPCS: 36415; 85025

== ENCOUNTER 2022-08-17 10:36 | Outpatient (CLI) | payer MEDICARE ==
--- NOTE | 2022-08-17 11:12 | XRAY Report ---
PROCEDURE: Abdomen 1 View X-Ray INDICATIONS: CHRONIC CONSTIPATION TECHNIQUE: One view of the abdomen acquired. COMPARISON: CT abdomen 03/21/2022 FINDINGS: No pathologically dilated gas-filled loops of bowel. Unremarkable amount stool present in the colon. Degenerative changes of the lumbar spine and hips are present. IMPRESSION: No pathologically dilated gas-filled loops of bowel. Reviewed by: Pranav Walls MD on 08/17/2022 11:11 AM PDT Approved by: Pranav Walls MD on 08/17/2022 11:11 AM PDT Station ID: [id number]
== END 2022-08-17 23:59 | disposition home or self-care (01) ==
LOC: DI.S 10:36
PROVIDERS: ATTEND Nurse Practitioner
DX: K59.09 Other constipation (principal); R10.9 Unspecified abdominal pain

== ENCOUNTER 2022-08-18 21:22 | Outpatient (CLI) | payer MEDICARE | END 2022-08-18 23:59 | disposition critical access hospital (66) | LOC: EMS 21:22 | DX: R10.12 Left upper quadrant pain (principal); K59.00 Constipation, unspecified; R06.00 Dyspnea, unspecified; J44.9 Chronic obstructive pulmonary disease, unspecified | CPT/HCPCS: A0425; A0427 ==

== ENCOUNTER 2022-08-18 21:58 | Emergency (ER) | payer MEDICARE ==
[2022-08-18] MEDS ORDERED: ALBUTEROL NEB 2.5 MG/3 ML INH ONE (22:12)
[2022-08-18] MEDS ORDERED: HYDROmorphone 1 MG/ML CARPUJECT IVP STA (22:16)
[2022-08-18] MEDS ORDERED: ALBUTEROL NEB 2.5 MG/3 ML INH STA (22:16)
[2022-08-18 23:51] LABS: BASOPHILS % (AUTO) 0.3 %; EOSINOPHILS # (AUTO) 0.1 10^3/uL (0.0-0.7); EOSINOPHILS % (AUTO) 0.7 %; HCT - HEMATOCRIT 38.8 % (37.0-47.0); HGB - HEMOGLOBIN 12.7 g/dL (12.0-16.0); LYMPHOCYTES # (AUTO) 1.7 10^3/uL (1.5-3.5); LYMPHOCYTES % (AUTO) 13.6 %; MEAN CORPUSCULAR HEMOGLOBIN 32.4 pg (27.0-31.0); MEAN CORPUSCULAR HGB CONC 32.7 g/dL (32.0-36.0); MEAN PLATELET VOLUME 9.6 fL (7.9-10.8); MONOCYTES # (AUTO) 0.2 10^3/uL (0.0-1.0); MONOCYTES % (AUTO) 1.7 %; NEUTROPHILS # (AUTO) 10.4 10^3/uL (1.5-6.6); NEUTROPHILS % (AUTO) 82.9 %; PLT - PLATELET COUNT 223 10^3/uL (130-450); RED BLOOD COUNT 3.92 10^6/uL (4.20-5.40); RED CELL DISTRIBUTION WIDTH 14.6 % (12.0-15.0); WHITE BLOOD COUNT 12.6 x10^3/uL (4.8-10.8)
[2022-08-19 00:02] LABS: ALBUMIN 4.2 g/dL (3.2-5.5); ALBUMIN/GLOBULIN RATIO 1.3 (1.0-2.2); BILIRUBIN,TOTAL 0.5 mg/dL (0.2-1.0); CALCIUM 8.3 mg/dL (8.5-10.3); CREATININE 0.7 mg/dL (0.4-1.0); POTASSIUM 3.3 mmol/L (3.5-5.0); TOTAL PROTEIN 7.5 g/dL (6.7-8.2)
[2022-08-19] MEDS ORDERED: iohexoL-300 100 ML VIAL ONE (00:22)
[2022-08-19] MEDS ORDERED: iohexoL-300 100 ML VIAL IVP ONE (01:08)
--- NOTE | 2022-08-19 01:25 | CT Report ---
PROCEDURE: ABDOMEN/PELVIS W INDICATIONS: LUQ pain, worsening, lung CA CONTRAST: Omni 300 100ml TECHNIQUE: After the administration of IV contrast, 5 mm thick sections acquired from the diaphragms to the symp hysis. 5 mm thick coronal and sagittal reformats were acquired. For radiation dose reduction, the f ollowing was used: automated exposure control, adjustment of mA and/or kV according to patient size. COMPARISON: 03/21/2022 FINDINGS: Image quality: Good Lower chest: Similar peripheral consolidation in the left lower lobe. This is only partially evaluate d. Small hiatal hernia. Mild nonspecific distal esophageal wall thickening. Overall heart size is nor mal. Solid organs: The liver is unremarkable. Gallbladder is unremarkable. Mildly prominent biliary tree i s similar to prior. No pathologic pancreatic ductal dilation. A moderately sized duodenal diverticulu m is present adjacent to the ampulla. No splenomegaly. No adrenal nodules. Moderate bilateral renal c ortical thinning. No hydronephrosis. Vessels and lymph nodes: Main portal vein is patent. No pathologic adenopathy by size criteria. No ab dominal aortic aneurysm. Bowel and peritoneum: Mildly distended stomach. No evidence of small bowel obstruction. Appendix is n ormal. No pathologic ascites or abscess. Body wall: Unremarkable Pelvis: Hyperdensity along the right anterolateral bladder wall, possibly a prominent vessel. Reprodu ctive organs appear physiologic, but are not well evaluated on CT. Bones: Degenerative changes, without acute or suspicious osseous finding. IMPRESSION: No acute abnormality abdomen or pelvis. Small hiatal hernia and nonspecific distal esophageal wall th ickening, possibly secondary to reflux. Consider endoscopy correlation if necessary. Mildly distende d stomach. No bowel obstruction. Left lower pulmonary opacity is similar to prior, partially evaluated on this study. Reviewed by: Ángel Garcia MD on 08/19/2022 1:24 AM PDT Approved by: Ángel Garcia MD on 08/19/2022 1:24 AM PDT Station ID: [id number]
[2022-08-19 02:01] VITALS: BP 107/94
--- NOTE | 2022-08-19 02:13 | ED Physician Documentation ---
History of Present Illness - Stated complaint Stated Complaint: ABD PAIN, COPD EXAC - Chief complaint Chief Complaint: Resp - History obtained from History obtained from: Patient - Additonal information Additional information: The pt is brought to the ED for CC of LUQ abd pain. She has a h/o lung CA and COPD, and states her breathing has been difficult for months. She is not on home O2, but does find herself with somewhat of labored respirations frequently. The pain in her LUQ has been coming up for at least the past few weeks, but she states that over the past few days, it's been hard to take a deep breath, secondary to the pain. She indicates it is right along her anterior costal margin. Pt denies vomiting or fevers. She was seen in clinic by primary care, who did an x-ray and noted dense stool in her colon. They started her on Miralax, though she states so far, she has had no relief of her sx. The pt states her BM's are highly variable in general, but she has had liquid stools since taking the Miralax. As far as her lung CA, she has recently completed treatment, and is being monitored every 6 months, short of any new developments. 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 : None HEENT: None Psych: None Musculoskeletal: Chronic back pain Derm: None - Past Surgical History Past Surgical History: Yes Ortho: Spine surgery - Present Medications Home Medications: Ambulatory Orders Medication Instructions Recorded Confirmed Albuterol Sulfate [Proair 2 puffs INH Q4H PRN 08/04/16 08/18/22 Respiclick] Ipratropium/Albuterol [Duoneb] 3 ml INH Q4HR #120 neb 08/06/16 08/18/22 Nebulizer [Aeroneb Go Nebulizer] 1 each QID #1 each 08/06/16 08/18/22 Atorvastatin Calcium 80 mg PO DAILY 09/10/19 08/18/22 Losartan Potassium 25 mg PO DAILY 09/10/19 08/18/22 Metoprolol Succinate [Toprol Xl] 25 mg PO DAILY 09/10/19 08/18/22 Potassium Chloride [K-Dur] 20 mg PO PRN PRN 09/10/19 08/18/22 Fluticasone Propion/Salmeterol 500 mg PO BID 08/18/22 08/18/22 [Wixela 500-50 Inhub] Mirtazapine 30 mg PO QPM 08/18/22 08/18/22 Naproxen 250 mg PO BID 08/18/22 08/18/22 Sertraline HCl [Zoloft] 100 mg PO DAILY 08/18/22 08/18/22 Tiotropium [place] [Spiriva 2 puffs IH Q6HR PRN 08/18/22 08/18/22 Handihaler] Omeprazole 40 mg PO DAILY #30 cap 08/19/22 - Allergies Allergies/Adverse Reactions: Allergies Allergy/AdvReac Type Severity Reaction Status Date / Time topiramate [From Topamax] Allergy Unknown Verified 08/18/22 22:05 varenicline [From Chantix] Allergy Unknown Verified 08/18/22 22:05 - Social History Does the pt smoke?: Yes Smoking Status: Current every day smoker Does the pt drink ETOH?: Yes Does the pt have substance abuse?: No - Immunizations Immunizations are current?: No Immunizations: TDAP >10years/unknown - POLST Patient has POLST: No PD ED PE NORMAL - Vitals Vital signs reviewed: Yes - General General: Alert and oriented X 3, Well developed/nourished, Other (Mild respiratory distress; pt is clutching her LUQ and splinting) - HEENT HEENT: Atraumatic, PERRL, EOMI, Moist mucous membranes - Neck Neck: Supple, no meningeal sign - Cardiac Cardiac: RRR, No murmur - Respiratory Respiratory: No respiratory distress, Other (Moderately diminished breath sounds bilaterally, splinted respirations) - Abdomen Abdomen: Soft, Non distended, Other (moderate tenderness, superior-most LUQ at costal margin) - Derm Derm: Normal color, Warm and dry, No rash - Extremities Extremities: No deformity, No edema - Neuro Neuro: Alert and oriented X 3 - Psych Psych: Normal mood, Normal affect Results - Vitals Vitals: Vital Signs - 24 hr 08/18/22 08/18/22 08/18/22 22:03 22:05 22:10 Temperature 36.4 C L Heart Rate 96 120 H 121 H Respiratory 24 28 H Rate Blood Pressure O2 Saturation 96 98 If not protocol : Oxygen Flow, liters/minute 08/18/22 08/18/22 08/18/22 22:18 22:29 22:41 Temperature Heart Rate 112 H 115 H 112 H Respiratory 25 H 26 H 16 Rate Blood Pressure 127/107 H 127/107 H 100/64 O2 Saturation 100 99 94 If not protocol 3 : Oxygen Flow, liters/minute 08/18/22 08/18/22 08/18/22 23:05 23:07 23:27 Temperature Heart Rate 92 Respiratory 16 Rate Blood Pressure 102/70 O2 Saturation 88 L 92 94 If not protocol 2 3 : Oxygen Flow, liters/minute 08/19/22 08/19/22 01:05 02:00 Temperature 36.7 C 36.4 C L Heart Rate 115 H 115 H Respiratory 16 25 H Rate Blood Pressure 114/74 107/94 H O2 Saturation 99 95 If not protocol 3 3 : Oxygen Flow, liters/minute Oxygen O2 Source Nasal cannula Oxygen Flow Rate 3 - Labs Labs: Laboratory Tests 08/18/22 08/18/22 23:44 23:44 WBC 12.6 H RBC 3.92 L Hgb 12.7 Hct 38.8 MCV 99.0 MCH 32.4 H MCHC 32.7 RDW 14.6 Plt Count 223 MPV 9.6 Neut # (Auto) 10.4 H Lymph # (Auto) 1.7 [place] # (Auto) 0.2 Eos # (Auto) 0.1 Baso # (Auto) 0.0 Absolute Nucleated RBC 0.00 Nucleated RBC % 0.0 Sodium 135 Potassium 3.3 L Chloride 100 L Carbon Dioxide 24 Anion Gap 11.0 BUN 8 Creatinine 0.7 Estimated GFR (MDRD) 83 L Glucose 136 H Calcium 8.3 L Total Bilirubin 0.5 AST 35 ALT 25 Alkaline Phosphatase 77 Total Protein 7.5 Albumin 4.2 Globulin 3.3 Albumin/Globulin Ratio 1.3 Lipase 31 - Rads (name of study) CT abd/pelvis Relevant Findings:: Final report received, See rad report (small hiatal hernia, distal esophageal wall thickening) PD Medical Decision Making - ED course Complexity details: reviewed results, re-evaluated patient, considered differential, d/w patient, d/w family ED course: The pt had already been treated en-route by EMS with a duoneb, albuterol, and solu-medrol. She was speaking in full sentences, but with some laboring of respirations and splinting. While the pt had a significant history of respiratory issues/diagnoses, I also suspected some of her laboring was due to her LUQ pain. I ordered one more neb, plus Dilaudid, after which the pt rep orted feeling quite a bit better. She was worked up with labs, including CBC and ER abd panel, both of which were reviewed by me and unremarkable. She was sent for a CT abd/pelvis, and this showed a hiatal hernia with distal esophageal wall thickening. I discussed the findings with the pt and her son. We have discussed that the hernia and associated esophagitis may very well be the cause of the pt's pain, but that a follow-up endoscopy is recommended for direct visualization of the area. We have discussed that an ulcer could be present,and would not show up on CT. I have prescribed omeprazole. The pt may continue to take Miralax if she finds this helpful. We have discussed the need for follow- up and the usual indications for return. Departure - Departure Disposition: 01 Home, Self Care Clinical Impression: COPD exacerbation, Hiatal hernia Abdominal pain Qualifiers: Abdominal location: epigastric Qualified Code(s): R10.13 - Epigastric pain Condition: Stable Instructions: Hiatal Hernia, ED Abdominal Pain Female Non-Specific Abdominal Pain, ED COPD Flare Prescriptions: Omeprazole 40 mg PO DAILY #30 cap Comments: Your laboratory studies overall look good. Your CT scan of the abdomen and pelvis does not show any concerning findings, though you do have a small hernia involving your stomach. This is called a hiatal hernia and is when a portion of the stomach squeezes up between the diaphragm and the esophagus to go in and out of the chest cavity. This certainly could be part of the pain you are having. It also appears you have had some reflux of stomach contents into the esophagus and there is a little irritation because of this. Sometimes, being on an antacid can be helpful with the discomfort from either one of these conditions, and this has been prescribed for you today. Otherwise, there is no evidence of any other significant problem in your abdomen. The other possibility is that y ou have strained the abdominal wall musculature on the left from the breathing issues you have been having. This can also cause ongoing pain in patients with chronic breathing problems. Please follow-up with your primary doctor and oncologist to determine whether you should have an endoscopy or other treatment or intervention. At this time, you are stable for discharge home. The prescription for your medication has been electronically transmitted to the [facility] pharmacy in [place]. Discharge Date/Time: 08/19/22 02:32
== END 2022-08-19 02:32 | disposition home or self-care (01) ==
LOC: EDUNIT# → ED 21:58
DX: J44.1 Chronic obstructive pulmonary disease with (acute) exacerbation (principal); K44.9 Diaphragmatic hernia without obstruction or gangrene; I10 Essential (primary) hypertension; F17.200 Nicotine dependence, unspecified, uncomplicated
CPT/HCPCS: 36415; 74177; 80053; 83690; 85025; 94640; 96374; 99284; J1170; Q9967

== ENCOUNTER 2023-01-30 08:00 | Outpatient (CLI) | payer MEDICARE ==
--- NOTE | 2023-01-30 17:21 | XRAY Report ---
PROCEDURE: Ankle 3 View LT INDICATIONS: LEFT ANKLE PAIN TECHNIQUE: 4 views of the ankle were acquired. COMPARISON: None. FINDINGS: Bones: No acute ankle fracture or dislocation. Fracture involving fifth metatarsal base is seen with slight dorsal and lateral displacement at fracture site. Mild to moderate midfoot and hindfoot joint osteoarthritic changes are seen. Ankle mortise is normally aligned. No suspicious bony lesions. Soft tissues: Soft tissue swelling around ankle joint is noted. No tibiotalar joint effusion. Achill es tendon appears normal. IMPRESSION: Slightly displaced fifth metatarsal base fracture. No acute ankle fracture or dislocation. 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 Mild ankle soft tissue swelling. Reviewed by: Sea Aguirre MD on 01/30/2023 5:20 PM PDT Approved by: Sea Agiurre MD on 01/30/2023 5:20 PM PDT Station ID: [id number]
--- NOTE | 2023-01-30 17:22 | XRAY Report ---
PROCEDURE: Foot 3 View LT INDICATIONS: LEFT FOOT PAIN TECHNIQUE: 3 views of the foot were acquired. COMPARISON: None. FINDINGS: Bones: Acute appearing fracture involving fifth metatarsal base is seen with lateral displacement at fracture site. Fracture line is seen extending to fifth TMT joint. Osteoarthritic changes are noted throughout left foot. No other fracture or dislocation. No suspicious bony lesions. Soft tissues: No suspicious soft tissue calcifications or masses. IMPRESSION: Slightly displaced fifth metatarsal base fracture as above. Reviewed by: Sea Aguirre MD on 01/30/2023 5:20 PM PDT Approved by: Sea Aguirre MD on 01/30/2023 5:20 PM PDT Station ID: [id number]
== END 2023-01-30 23:59 | disposition home or self-care (01) ==
LOC: DI.S 08:00
PROVIDERS: ATTEND Physician Assistant
DX: S92.352A Displaced fracture of fifth metatarsal bone, left foot, initial encounter for closed fracture (principal); M19.072 Primary osteoarthritis, left ankle and foot

== ENCOUNTER 2023-02-13 08:00 | Outpatient (CLI) | payer MEDICARE ==
--- NOTE | 2023-02-13 18:31 | XRAY Report ---
PROCEDURE: Foot 3 View LT INDICATIONS: LEFT FOOT FRACTURE TECHNIQUE: 3 views of the foot were obtained. COMPARISON: 01/30/2023 FINDINGS: Bones: Persistent linear lucency through the base of the fifth metatarsal with remodeling of the fra cture line. Remainder the osseous structures are appropriately mineralized. Joint spaces are preserve d Soft tissues: Unremarkable. No radiopaque foreign body. IMPRESSION: Fifth metatarsal fracture with remodeling but persistent linear lucency Reviewed by: Charlie Roberts MD on 02/13/2023 5:30 PM AKDT Approved by: Charlie Roberts MD on 02/13/2023 5:30 PM AKDT Station ID: [id number]
--- NOTE | 2023-02-13 18:45 | XRAY Report ---
PROCEDURE: Ankle 3 View LT INDICATIONS: LEFT ANKLE PAIN TECHNIQUE: 3 views of the ankle were acquired. COMPARISON: None FINDINGS: Bones: No fractures or dislocations. Ankle mortise is normally aligned. No suspicious bony lesions . Soft tissues: Unremarkable without significant soft tissue swelling. No radiopaque foreign body. Late ral soft tissue swelling IMPRESSION: Persistent mild lateral tissue swelling without fracture or foreign body in the ankle Reviewed by: Charlie Roberts MD on 02/13/2023 5:44 PM AKDT Approved by: Charlie Roberts MD on 02/13/2023 5:44 PM AKDT Station ID: [id number]
== END 2023-02-13 23:59 | disposition home or self-care (01) ==
LOC: DI.WOS 08:00
PROVIDERS: ATTEND Physician Assistant Surgical
DX: M25.572 Pain in left ankle and joints of left foot (principal); R22.42 Localized swelling, mass and lump, left lower limb

== ENCOUNTER 2023-02-24 09:42 | Outpatient (CLI) | payer MEDICARE ==
--- NOTE | 2023-02-24 14:01 | CT Report ---
PROCEDURE: CHEST WO INDICATIONS: HIST OF LUNG CA TECHNIQUE: Noncontrast 1mm axial images were acquired from the pulmonary apices to the posterior costophrenic an gles. Axial 5 mm soft tissue kernel reconstructions were performed as well as 8 mm axial MIP and cor onal and sagittal 5 mm reformations. For radiation dose reduction, the following was used: automate d exposure control, adjustment of mA and/or kV according to patient size. COMPARISON: CT 05/18/2018 FINDINGS: Image quality: Excellent. Lungs and pleura: No consolidation. No pleural effusions. No pneumothorax. Stable pulmonary nodules. These include: -0.9 cm left lower lobe solid nodule (series 3, image 93). -0.9 cm left upper lobe solid nodule (series 3, image 130). New 4 mm right lower lobe pulmonary nodule (series 3, image 241). The left lower lobe peripheral mass appears slightly more solid on today's examination, especially on the superior margin. The mass measures 3.1 x 3.8 cm, previously 3.9 x 2.8 cm. Mediastinum: Heart size is normal. No pericardial effusion. No large vessel abnormality. No mediastin al adenopathy by size criteria. Small hiatal hernia. Chest wall and lower neck: Thyroid is unremarkable. No axillary or supraclavicular adenopathy by size . Bones: No aggressive osseous abnormality. Upper Abdomen: Unremarkable. IMPRESSION: The left lower lobe peripheral mass appears slightly more solid on today's examination, especially on the superior margin. The mass measures 3.1 x 3.8 cm, previously 3.9 x 2.8 cm. New 4 mm solid nodule in the right lower lobe. Otherwise, stable pulmonary nodules. Reviewed by: Ramy Omalley on 02/24/2023 2:00 PM PDT Approved by: Ramy Omalley on 02/24/2023 2:00 PM PDT Station ID: [id number]
== END 2023-02-24 09:43 | disposition home or self-care (01) ==
LOC: DI 09:42
PROVIDERS: ATTEND Radiology Radiation Oncology
DX: D02.22 Carcinoma in situ of left bronchus and lung (principal); R91.1 Solitary pulmonary nodule

== ENCOUNTER 2023-03-13 08:00 | Outpatient (CLI) | payer MEDICARE ==
--- NOTE | 2023-03-13 19:58 | XRAY Report ---
PROCEDURE: Foot 3 View LT INDICATIONS: LEFT 5TH MT FRACTURE TECHNIQUE: 3 views of the foot were obtained. COMPARISON: None FINDINGS: Bones: There is remodeling and bridging callus noted involving oblique fracture through the base of the fifth metatarsal Soft tissues: Unremarkable. No radiopaque foreign body. IMPRESSION: Healing base of fifth metatarsal fracture Reviewed by: Charlie Roberts MD on 03/13/2023 6:57 PM AK Approved by: Charlie Roberts MD on 03/13/2023 6:57 PM AK Station ID: [id number]
== END 2023-03-13 23:59 | disposition home or self-care (01) ==
LOC: DI.WOS 08:00
PROVIDERS: ATTEND Physician Assistant Surgical
DX: S92.352D Displaced fracture of fifth metatarsal bone, left foot, subsequent encounter for fracture with routine healing (principal)

== ENCOUNTER 2023-09-18 10:52 | Outpatient (CLI) | payer MEDICARE ==
--- NOTE | 2023-09-18 12:00 | CT Report ---
PROCEDURE: Lung Cancer Screen INDICATIONS: HIST OF LUNG CA TECHNIQUE: A CT scan of the chest was performed. Intravenous contrast media was not administered. Images were re corded and evaluated at appropriate window settings. Reformats: axial MIP of the chest, coronal and s agittal. For radiation dose reduction, the following was used: automated exposure control, adjustment of mA and/or kV according to patient size. COMPARISON: CT 02/24/2023 FINDINGS: Image quality: Excellent. Prior cancer history: Yes. Lungs and pleura: No pleural effusions. No pneumothorax. Unchanged appearance of the wedge-shaped fo cus of architectural distortion in the peripheral left lower lobe. Multiple calcified and noncalcifie d solid pulmonary nodules, which appear similar compared with priors. For instance: -Stable 10 x 7 mm solid nodule, right lower lobe (series 4, image 48). -Stable 10 x 6 mm solid nodule, left lower lobe (series 4, image 35). -Decreased 3 mm solid nodule, right lower lobe, previously 4 mm (series 4, image 89). Mediastinum: Heart size is normal. No pericardial effusion. No large vessel abnormality. No mediastin al adenopathy by size criteria. No significant coronary calcifications. Chest wall and lower neck: Thyroid is unremarkable. No axillary or supraclavicular adenopathy by size . Bones: No aggressive osseous abnormality. Upper Abdomen: Unremarkable. IMPRESSION: Lung RAD: 2 - Benign. Recommendation: Continue annual screening in 12 Months with LDCT Non-Lung Significant Findings: None. Reviewed by: Ramy Omalley MD on 09/18/2023 11:58 AM PDT Approved by: Ramy Omalley MD on 09/18/2023 11:58 AM PDT Station ID: [id number]
== END 2023-09-18 10:53 | disposition home or self-care (01) ==
LOC: DI 10:52
PROVIDERS: ATTEND Radiology Radiation Oncology
DX: Z08 Encounter for follow-up examination after completed treatment for malignant neoplasm (principal); Z85.118 Personal history of other malignant neoplasm of bronchus and lung